=== PATIENT | female | born 1960 | race Caucasian/White ===

== ENCOUNTER → 2022-06-21 14:07 | Outpatient (CLI) | payer OTHER, SELFPAY ==
--- NOTE | ~2022-06-21 | XR_ITS ---
XR cervical spine 4-5V DATE: 06/21/2022 14:32 INDICATION: Neck pain TECHNIQUE: AP, open-mouth, lateral and swimmer views COMPARISON: None FINDINGS: There is minimal anterolisthesis at C5-6. Otherwise normal alignment. C1 and C2 are normall y aligned and the odontoid process is intact. Cervical interspaces are relatively well preserved. No fracture or dislocation or locked facet or prevertebral soft tissue swelling. IMPRESSION: Minimal anterolisthesis at C5-6 Reviewed, dictated and finalized at location B.
== END ==
PROVIDERS: PCP Family Medicine; Visit Provider Physician Assistant
DX: M54.2 Cervicalgia (principal)
CPT/HCPCS: 72050

== ENCOUNTER → 2022-10-25 12:12 | Outpatient (CLI) | payer OTHER, SELFPAY ==
--- NOTE | ~2022-10-25 | MM_ITS ---
EXAMINATION: MM screening bhumika BI w lulú HISTORY: Screening mammogram TECHNIQUE: Craniocaudal and mediolateral oblique 3-D tomosynthesis images were obtained and synthetic 2-D images were generated. CAD analysis was submitted and interpreted. COMPARISON: 08/24/2019, 07/14/2018, 07/12/2017 bilateral screening mammogram examinations BREAST PARENCHYMAL COMPOSITION: The breasts are heterogeneously dense, which may obscure small masses . FINDINGS: There is no evidence of suspicious mass, calcification, or architectural distortion to sugg est malignancy in either breast. There has been no suspicious interval change. IMPRESSION: 1. No mammographic evidence of malignancy. 2. Recommend routine screening mammography in one year. BI-RADS Category 1: Negative Reviewed, dictated and finalized at location A. ANIC
== END ==
PROVIDERS: PCP Family Medicine; Visit Provider Family Medicine
DX: Z12.31 Encounter for screening mammogram for malignant neoplasm of breast (principal)
CPT/HCPCS: 77063; 77067

== ENCOUNTER 2024-04-19 15:53 | Outpatient (CLI) | payer OTHER, SELFPAY ==
--- NOTE | ~2024-04-19 | XR_ITS ---
Thoracic spine: Clinical Indication: Back pain AP and lateral views were performed. No fracture is seen. There is normal alignment of the vertebrae. The intervertebral disc spaces appe ar normal. Paravertebral soft tissues appear normal. Impression: No significant abnormalities noted. Reviewed, dictated and finalized at [facility]. Impression: No significant abnormalities noted.
== END 2024-04-19 15:54 ==
LOC: MICIMG 15:55
PROVIDERS: PCP Family Medicine; Visit Provider Family Medicine
DX: M54.6 Pain in thoracic spine (principal)
CPT/HCPCS: 72072

== ENCOUNTER 2024-07-19 01:20 | Day surgery (SDC) | payer OTHER, SELFPAY ==
[2024-06-28 13:43] VITALS: BMI 25.9
[2024-07-19] MEDS: LACTATED RINGERS 1,000 ML 150 ML IV CONT (10:36)
[2024-07-19 10:38] VITALS: BP 134/60; PULSE 94; RESP 18; TEMP 36.3; O2SAT 100; BMI 25.7
--- NOTE | 2024-07-19 11:13 | P.PNAN_ITS ---
Anes - Initial Pre Proc Eval Procedure: Operation Date: 07/19/24 11:30 Proposed Procedures p Screening Colonoscopy - Calvin De La Rosa MD Date/Time: 07/19/24 11:13 Surgeon: Calvin De La Rosa MD Pre Op Diagnosis: neoplasm screening Patient Data Age: 63 Gender: F Height: 1.68 m Weight: 72.3 kg Last Vital Signs Temp 36.3 C L 07/19/24 10:38 Pulse 94 07/19/24 10:38 Resp 18 07/19/24 10:38 BP 134/60 07/19/24 10:38 Pulse Ox 100 07/19/24 10:38 O2 Del Method Room Air 07/19/24 10:38 Allergies Allergy/AdvReac Type Severity Reaction Status Date / Time Sulfa (Sulfonamide Allergy Unknown HIVES Verified 07/19/24 10:37 Antibiotics) Home Medications Medication Instructions Recorded Confirmed Type rosuvastatin 20 mg tablet 20 mg PO DAILY #90 tabs 02/03/24 07/19/24 Rx lisinopril 10 mg tablet 10 mg PO DAILY #90 tabs 02/23/24 07/19/24 Rx diclofenac sodium 75 mg 75 mg PO BID #30 tabs 04/19/24 07/19/24 Rx tablet,delayed release ciprofloxacin HCl 500 mg tablet 500 mg PO Q12H #14 tabs 06/22/24 07/19/24 Rx Patient hx anesthesia problems: none Family hx anesthesia problems: none Results Review: All pre-operative results and documents have been reviewed as part of the pre- operative evaluation. [facility] Past Medical History Medical History Essential (primary) hypertension Pure hypercholesterolemia, unspecified Social History Social History Smoking status: Never smoker Second hand tobacco smoke exposure: No Alcohol intake: current Alcohol use details: once a month at most per patient Substance use: never Substance use type: does not use Do You Feel Safe in your Home?: Yes Lack of Transportation: No Lack of Food: Never True Current Housing: I Have Housing Concerned About Future Housing: No Difficulty Paying Gas/Electric Bills: No Difficulty Paying for Meds: No Currently Unemployed: No Education: Master's Degree or Higher Difficulty w/ Childcare or Family Care: No Living arrangements: alone Occupation/Education: retired Gender identity (if verbalized by the patient): Female Sexual Orientation (if Verbalized by the Patient): Straight or Heterosexual Spiritual care concerns: No Anes - Eval Final PreProcedure Day of Procedure 07/19/24 11:13 Patient weight: normal Heart: regular rate and rhythm Lungs: clear to auscultation Airway: Mallampati scale class II Neurological: alert and oriented Last oral intake: >/= 8 hours ASA classification: II Emergent: no Anesthetic plan: proceed Anesthesia type and monitoring: general GIVS and standard monitoring Results Review: All pre-operative results and documents have been reviewed as part of the pre- operative evaluation. Informed Consent: The patient's anesthetic plan and its attendant risks and benefits were discussed with the patient/family/POA. Questions were solicited and answers provided to the satisfaction of the patient/family/POA.
--- NOTE | 2024-07-19 11:15 | WPDANESEPPF ---
Anes - Initial Pre Proc Eval Procedure: Operation Date: 07/19/24 11:30 Proposed Procedures p Screening Colonoscopy - Calvin De La Rosa MD Date/Time: 07/19/24 11:15 Surgeon: Calvin De La Rosa MD Pre Op Diagnosis: neoplasm screening Patient Data Age: 63 Gender: F Height: 1.68 m Weight: 72.3 kg Last Vital Signs Temp 36.3 C L 07/19/24 10:38 Pulse 94 07/19/24 10:38 Resp 18 07/19/24 10:38 BP 134/60 07/19/24 10:38 Pulse Ox 100 07/19/24 10:38 O2 Del Method Room Air 07/19/24 10:38 Allergies Allergy/AdvReac Type Severity Reaction Status Date / Time Sulfa (Sulfonamide Allergy Unknown HIVES Verified 07/19/24 10:37 Antibiotics) Home Medications Medication Instructions Recorded Confirmed Type rosuvastatin 20 mg tablet 20 mg PO DAILY #90 tabs 02/03/24 07/19/24 Rx lisinopril 10 mg tablet 10 mg PO DAILY #90 tabs 02/23/24 07/19/24 Rx diclofenac sodium 75 mg 75 mg PO BID #30 tabs 04/19/24 07/19/24 Rx tablet,delayed release ciprofloxacin HCl 500 mg tablet 500 mg PO Q12H #14 tabs 06/22/24 07/19/24 Rx Patient hx anesthesia problems: none Family hx anesthesia problems: none Results Review: All pre-operative results and documents have been reviewed as part of the pre-operative evaluation. [facility] Past Medical History Medical History Essential (primary) hypertension Pure hypercholesterolemia, unspecified Social History Social History Smoking status: Never smoker Second hand tobacco smoke exposure: No Alcohol intake: current Alcohol use details: once a month at most per patient Substance use: never Substance use type: does not use Do You Feel Safe in your Home?: Yes Lack of Transportation: No Lack of Food: Never True Current Housing: I Have Housing Concerned About Future Housing: No Difficulty Paying Gas/Electric Bills: No Difficulty Paying for Meds: No Currently Unemployed: No Education: Master's Degree or Higher Difficulty w/ Childcare or Family Care: No Living arrangements: alone Occupation/Education: retired Gender identity (if verbalized by the patient): Female Sexual Orientation (if Verbalized by the Patient): Straight or Heterosexual Spiritual care concerns: No Anes - Eval Final PreProcedure Day of Procedure 07/19/24 11:15 Patient weight: normal Heart: regular rate and rhythm Lungs: clear to auscultation Airway: Mallampati scale class II Neurological: alert and oriented Last oral intake: >/= 8 hours ASA classification: II Emergent: no Anesthetic plan: proceed Anesthesia type and monitoring: general GIVS and standard monitoring Results Review: All pre-operative results and documents have been reviewed as part of the pre-operative evaluation. Informed Consent: The patient's anesthetic plan and its attendant risks and benefits were discussed with the patient/family/POA. Questions were solicited and answers provided to the satisfaction of the patient/family/POA.
--- NOTE | 2024-07-19 11:40 | PM.HPGS ---
History of Present Illness History of Present Illness Consent: Risks, benefits, and alternatives have been discussed and questions answered. Patient agrees to proceed with procedure. Chief complaint: neoplasm screening Narrative: Dania Stanley is a 63 year old female here for screening colonoscopy, last one 10 years ago Review of Systems Review of Systems: All systems reviewed & are unremarkable except as noted in HPI and below PMFSH Past Medical History Medical History (Updated 07/19/24 @ 11:41 by Calvin De La Rosa MD) Colon cancer screening Essential (primary) hypertension Pure hypercholesterolemia, unspecified Social History Social History Smoking status: Never smoker Second hand tobacco smoke exposure: No Alcohol intake: current Alcohol use details: once a month at most per patient Substance use: never Substance use type: does not use Do You Feel Safe in your Home?: Yes Lack of Transportation: No Lack of Food: Never True Current Housing: I Have Housing Concerned About Future Housing: No Difficulty Paying Gas/Electric Bills: No Difficulty Paying for Meds: No Currently Unemployed: No Education: Master's Degree or Higher Difficulty w/ Childcare or Family Care: No Living arrangements: alone Occupation/Education: retired Gender identity (if verbalized by the patient): Female Sexual Orientation (if Verbalized by the Patient): Straight or Heterosexual Spiritual care concerns: No Meds Home Medications and Allergies Home Medications Medication Instructions Recorded Confirmed Type rosuvastatin 20 mg tablet 20 mg PO DAILY #90 tabs 02/03/24 07/19/24 Rx lisinopril 10 mg tablet 10 mg PO DAILY #90 tabs 02/23/24 07/19/24 Rx diclofenac sodium 75 mg 75 mg PO BID #30 tabs 04/19/24 07/19/24 Rx tablet,delayed release ciprofloxacin HCl 500 mg tablet 500 mg PO Q12H #14 tabs 06/22/24 07/19/24 Rx Allergies Allergy/AdvReac Type Severity Reaction Status Date / Time Sulfa (Sulfonamide Allergy Unknown HIVES Verified 07/19/24 10:37 Antibiotics) Vital Signs Vital Signs - 24 hr 07/19/24 10:38 Temperature 97.3 F L Pulse Rate 94 Respiratory Rate 18 Blood Pressure 134/60 Pulse Oximetry 100 Oxygen Delivery Room Air Exam Const: General: comfortable and no acute distress HENMT: Face/Nose/Sinus: Normal nares present Eyes: General: appearance normal, both eyes and all related structures Neck: Neck: no JVD Resp: Auscultation: clear to auscultation bilaterally Cardio: Rate: regular rate Rhythm: regular rhythm GI: Inspection: non-distended GI Palp: Yes Soft to palpation Skin: General skin exam: normal color Neuro: General: gait normal Speech: normal speech Extrem: General: normal to inspection Psych: Mental Status: mental status grossly normal Assessment and Plan Assessment and plan (1) Colon cancer screening: Code(s): Z12.11 - Encounter for screening for malignant neoplasm of colon Status: Acute Assessment and Plan: colonoscopy
[2024-07-19 12:00] VITALS: BP 90/44; PULSE 67; RESP 18; O2SAT 98
[2024-07-19 12:10] VITALS: BP 96/57; PULSE 62; RESP 18; O2SAT 100
[2024-07-19 12:20] VITALS: BP 112/59; PULSE 56; RESP 16; O2SAT 100
== END 2024-07-19 12:29 | disposition home or self-care (01) ==
PROVIDERS: PCP Family Medicine; Visit Provider Internal Medicine Gastroenterology
PROC: 0DJD8ZZ Inspection of Lower Intestinal Tract, Via Natural or Artificial Opening Endoscopic (ICD-10-PCS; CPT 45378; principal; 2024-07-19 11:30)
DX: Z12.11 Encounter for screening for malignant neoplasm of colon (principal); K64.8 Other hemorrhoids; I10 Essential (primary) hypertension; E78.00 Pure hypercholesterolemia, unspecified
CPT/HCPCS: 45378; J2003; J2704; J7120

== ENCOUNTER 2024-10-10 10:25 | Emergency (ER) | payer OTHER, SELFPAY ==
[2024-10-10 10:41] VITALS: BP 141/67; PULSE 95; RESP 18; TEMP 36.9; O2SAT 100
--- NOTE | 2024-10-10 11:01 | ED_ITS ---
HPI - General Adult General Chief complaint: Upper Respiratory Infection Stated complaint: sore throat / fever Source: patient Mode of arrival: ambulatory Limitations: no limitations History of Present Illness HPI narrative: Patient presents for evaluation of sore throat for the last 3 days. She has experience fever without chills. No cough, shortness of breath, nausea, vomiting, diarrhea. She recently had a gathering in her house and there were several individuals there that were sick. She has been tylenol for her symptoms. Related Data Allergies Allergy/AdvReac Type Severity Reaction Status Date / Time Sulfa (Sulfonamide Allergy Unknown HIVES Verified 10/10/24 10:40 Antibiotics) Review of Systems Review of Systems: CONSTITUTIONAL: Reports fever. Denies chills, or sweats. EYES: Denies visual changes, redness, or discharge. ENT: Reports sore throat. Denies rhinorrhea, congestion, or otalgia. CARDIOVASCULAR: Denies chest pain, palpitations, or edema. RESPIRATORY: Denies cough or dyspnea. GASTROINTESTINAL: Denies abdominal pain, nausea, vomiting, or diarrhea. GENITOURINARY: Denies dysuria or hematuria. SKIN: Denies rash or itching. MUSCULOSKELETAL: Denies back pain, joint pain, or myalgia. NEUROLOGIC: Denies headache, numbness, dizziness, or weakness. PSYCHIATRIC: Denies anxiety or depression. [facility] Past Medical History Medical History Colon cancer screening Pure hypercholesterolemia, unspecified Essential (primary) hypertension Surgical History Surgical History No pertinent past surgical history Family History Family History Mother Family history non-contributory Social History Social History Smoking status: Never smoker Second hand tobacco smoke exposure: No Alcohol intake: current Alcohol use details: once a month at most per patient Substance use: never Substance use type: does not use Do You Feel Safe in your Home?: Yes Lack of Transportation: No Lack of Food: Never True Current Housing: I Have Housing Concerned About Future Housing: No Difficulty Paying Gas/Electric Bills: No Difficulty Paying for Meds: No Currently Unemployed: No Education: Master's Degree or Higher Difficulty w/ Childcare or Family Care: No Living arrangements: alone Occupation/Education: retired Gender identity (if verbalized by the patient): Female Sexual Orientation (if Verbalized by the Patient): Straight or Heterosexual Spiritual care concerns: No Exam Narrative: GENERAL: Well-appearing, well-nourished, and in no acute distress. HEAD: Normocephalic, atraumatic. EYES: PERRLA and EOMI. ENT: Nares clear, no rhinorrhea or epistaxis. Mucous membranes moist. Oropharynx without tonsillar hypertrophy exudate or other lesions. There is posterior pharyngeal erythema. Uvula is midline. Bilateral TMs pearly herrera nonbulging NECK: Supple. No adenopathy or masses. No carotid bruits or JVD CHEST: Clear to auscultation. No respiratory distress. No wheezes rales or rhonchi HEART: Regular rate and rhythm. No murmur heard. Normal peripheral pulses. ABDOMEN: Soft, nontender, nondistended, normal active bowel sounds. EXTREMITIES: Normal range of motion. No edema. SKIN: Warm, dry, no rash. NEURO: No focal deficits. Alert and oriented x3. PSYCH: Normal mood and affect. Course Course Emergency Course: This is a 64-year-old female who presented for evaluation of sore throat. Rapid strep positive. Will treat with amoxicillin. Increase hydration. [id number] agents for symptom management. Follow up with primary provider. Go to the ER for worsening symptoms. Patient is in agreement with plan of care. Level of Care: Express Care Visit Vital Signs Vital signs: Vital Signs Temperature 36.9 C 10/10/24 10:41 Pulse Rate 95 10/10/24 10:41 Respiratory Rate 18 10/10/24 10:41 Blood Pressure 141/67 H 10/10/24 10:41 Pulse Oximetry 100 10/10/24 10:41 Oxygen Delivery Room Air 10/10/24 10:41 Temperature 36.9 C 10/10/24 10:41 Pulse Rate 95 10/10/24 10:41 Respiratory Rate 18 10/10/24 10:41 Blood Pressure 141/67 H 10/10/24 10:41 Pulse Oximetry 100 10/10/24 10:41 Oxygen Delivery Room Air 10/10/24 10:41 Medical Decision Making Vital Signs Vital Signs: Vital Signs Temperature 36.9 C 10/10/24 10:41 Pulse Rate 95 10/10/24 10:41 Respiratory Rate 18 10/10/24 10:41 Blood Pressure 141/67 H 10/10/24 10:41 Pulse Oximetry 100 10/10/24 10:41 Oxygen Delivery Room Air 10/10/24 10:41 Temperature 36.9 C 10/10/24 10:41 Pulse Rate 95 10/10/24 10:41 Respiratory Rate 18 10/10/24 10:41 Blood Pressure 141/67 H 10/10/24 10:41 Pulse Oximetry 100 10/10/24 10:41 Oxygen Delivery Room Air 10/10/24 10:41 Discharge Plan Discharge Clinical Impression: Strep throat Patient Disposition: Home, Self-Care Condition: Stable Instructions: Antibiotic Form, Strep Throat (ED) Patient Language: Urdu Prescriptions: New amoxicillin 500 mg tablet 500 mg PO Q12H Qty: 20 0RF No Action lisinopril 10 mg tablet 10 mg PO DAILY Qty: 90 1RF rosuvastatin 20 mg tablet 20 mg PO DAILY Qty: 90 1RF Follow-up/Referrals: Sean Mendoza MD [Primary Care Provider] - Time of Disposition: 11:00
[2024-10-10 11:03] LABS: EDSTREPNEGPOS1 Positive (Negative)
== END 2024-10-10 11:03 | disposition home or self-care (01) ==
PROVIDERS: Emergency Provider Nurse Practitioner; PCP Family Medicine
DX: J02.0 Streptococcal pharyngitis (principal); E78.00 Pure hypercholesterolemia, unspecified; I10 Essential (primary) hypertension
CPT/HCPCS: 87880; 99213; G0463

== ENCOUNTER 2025-09-13 13:31 | Outpatient (CLI) | payer OTHER, SELFPAY ==
--- NOTE | ~2025-09-13 | MM_ITS ---
EXAMINATION: MM screening bhumika BI w lulú HISTORY: Screening. TECHNIQUE: Craniocaudal and mediolateral oblique 3-D tomosynthesis images were obtained and synthetic 2-D images were generated. CAD analysis was submitted and interpreted. COMPARISON: 2022, 2018, and 2017. BREAST PARENCHYMAL COMPOSITION: Dense: The breasts are extremely dense FINDINGS: There are waxing and waning circumscribed nodules/masses, consistent with breast cysts. No suspicious masses are seen. There are no suspicious calcifications. No unexplained architectural distortion is seen. There are no skin or nipple abnormalities identified. There is no adenopathy seen on the images submitted. IMPRESSION: No mammographic evidence to suggest malignancy is seen. The patient may return to screening mammography as per ACR guidelines. BI-RADS 2 - Benign. Reviewed, dictated and finalized at location C. [employer]
== END 2025-09-13 13:32 | disposition home or self-care (01) ==
LOC: ANHFOHIMG 13:32
PROVIDERS: PCP Family Medicine; Visit Provider Family Medicine
DX: Z12.31 Encounter for screening mammogram for malignant neoplasm of breast (principal)
CPT/HCPCS: 77063; 77067